=== PATIENT | male | born 1960 | race Two or more races ===

== ENCOUNTER → 2024-06-24 | Day surgery (SDC) | payer MEDICAID ==
[2024-06-23 11:06] LABS: Urine Bacteria None Seen /hpf (None Seen)
[2024-06-23 11:22] LABS: Basophils # (auto) 0.1 10 ^3/uL (0-0.2); Eosinophils # (auto) 0.2 10 ^3/uL (0-0.8); Eosinophils % (auto) 3.2 % (0.0-7.0); Hematocrit 41.1 % (41.0-53.0); Hemoglobin 13.5 g/dL (13.5-17.5); Lymphocytes # (auto) 0.8 10 ^3/uL (0.4-5.4); Lymphocytes % (auto) 13.8 % (10.0-50.0); Mean Corpuscular Hgb Conc. 32.7 g/dL (32.0-36.0); Mean Corpuscular Volume 85.6 fL (80.0-100.0); Monocytes # (auto) 0.4 10 ^3/uL (0-1.3); Monocytes % (auto) 7.8 % (0.0-12.0); Neutrophils # (auto) 4.1 10 ^3/uL (1.6-8.6); Neutrophils % (auto) 74.2 % (37.0-80.0); Platelet Count (auto) 247 10^3/uL (140-450); Red Cell Distribution Width 17.6 % (11.8-14.3); White Blood Cell 5.5 10^3/uL (4.4-10.8)
[2024-06-23 11:51] LABS: INR 0.96 (0.9-1.15); Partial Thromboplastin Time 28.7 SEC (24.5-34.5); Prothrombin Time 10.2 sec (9.3-11.8)
[2024-06-23 12:22] LABS: Urine Blood Negative /uL (Negative); Urine Clarity Clear (Clear); Urine Color Colorless (Yellow); Urine Protein, UAD Negative (Negative); Urine Specific Gravity 1.005 (1.001-1.035); Urine Squamous Epithelial Cell None Seen /hpf (<5); Urine Urobilinogen Normal (Negative); Urine WBC < 1 /HPF (0-3); Urine pH 5.5 (5.0-9.0)
[2024-06-23 12:27] LABS: Albumin 4.3 g/dL (3.2-4.8); Alkaline Phosphatase 72 U/L (46-116); Anion Gap 6 (5-15); Aspartate Aminotransferase 15 U/L (13-40); BUN/Creatinine Ratio 9.2 (10.0-20.0); Calcium 10.1 mg/dL (8.7-10.4); Carbon Dioxide 28 mmol/L (20-31); Chloride 103 mmol/L (98-107); Glucose 86 mg/dL (74-106); Potassium 4.1 mmol/L (3.5-5.1); Sodium 137 mmol/L (136-145)
[2024-06-23 12:28] LABS: Bilirubin, Total 0.3 mg/dL (0.2-1.0); Total Protein 6.8 g/dL (5.7-8.2)
[2024-06-23 12:29] LABS: Alanine Aminotransferase < 9 U/L (7-40); Blood Urea Nitrogen 8 mg/dL (9-23)
[~2024-06-24] VITALS: Ht 188 cm; Wt 92.1 kg
[~2024-06-24] MED LIST: ACET-1304 PO; AMLO1TAB23 PO; ASCO500T11 PO; ASPI1TAB20 PO; ATOR10TA PO; BACL20TA PO; CARV12.544 PO; CETI-83 OR; CHOLCAP4 PO; CLON0.1T PO; CLOT1CRE56 TOP; DIP005TP TOP; DIPH-751 PO; FENO145T27 OR; FER325T PO; HYDR-3682 PO; HYDROmorphone HCL 2 MG/ML VL/or syr ONE; IBUP1TAB4 PO; LEVO175C2 PO; LIDOCAINE 1% INJ PF 5ML AMP ONE; LOSA100T25 PO; METH-867 PO; MONT-8 OR; NALO4SPR2; ONDA-155 PO; ONDANSETRON HCL 4 MG/2 ML VIAL ONE; PANT40TA2 PO; PROPOFOL 10 MG/ML 20 ML IV ONE; SUCR1TAB31 OR; TACR0.1O7 EX; TERB250T92 PO; TRIO1TP EX
--- NOTE | 2024-06-24 08:58 | DVHHP2 ---
GI H&P Pre-Op Assessment Date: 06/24/24 Chief complaint: thickened esophagus on CT scan. HPI: per clinic note Past medical history: per clinic note Past surgical history: per clinic note Family history: per clinic note Physical exam: General: NAD, AAOX3 HEENT: PERRL, no scleral icterus, normal hearing, gums without lesions or bleeding, oropharynx clear without erythema or exudate. Neck: Supple without enlargement of the thyroid, or lymphadenopathy. Chest: Normal size and shape, no tenderness, lung means clear to auscultation and percussion, nonlabored breathing. Heart: RRR, no murmur Abdomen: non-distended, no tenderness to palpation, +BS, no hepatosplenomegaly Extremities: no edema Neurological: CN II-XII intact, sensation intact in all extremities, 5+ strength in all extremities Skin: No rashes, No jaundice Assessment: - thickened esophagus on CT scan. Plan: - EGD - Risks (bleeding, infection, perforation, reaction to sedation medications and cardiopulmonary arrest) and benefit of the procedure were explained to patient. Patient agrees to undergo the procedure. RAFAEL SEN MD Jun 24, 2024 08:58
--- NOTE | 2024-06-24 09:00 | DVHOP2 ---
Operative Report DATE OF OPERATION: 06/24/24 PROCEDURE: Upper Endoscopy. PREOPERATIVE INDICATION: The patient is a 63 -year-old male undergoing endoscopy for thickened esophagus on CT scan. POSTOPERATIVE DIAGNOSES: 1. Hiatal hernia 42-45 cm. 2. Normal esophagus PROCEDURE PERFORMED BY: Ron Corado SCOPE: Olympus videoendoscope. ASA CLASS: 4 PREOPERATIVE MEDICATIONS: MAC with Dr Angela PROCEDURE IN DETAIL: After obtaining an informed consent, the patient was placed on left lateral decubitus position. The patient was then sedated with the above medications. A bite block was placed between his teeth. The endoscope was then passed through the oropharynx, into the esophagus, and t hrough the stomach and pylorus up to the second and third part of the duodenum. The duodenum was normal in appearance. The stomach was normal in appearance. There was hiatal hernia 42-45 cm. The GEJ was normal in appearance at 42 cm. The esophagus was normal in appearance. The endoscope was then withdrawn. The patient tolerated the procedure well without difficulty. COMPLICATIONS : None SPECIMENS: None DISPOSITION: D/C to home PLAN: 1. Pt will f/u in GI clinic. RON CORADO MD Jun 24, 2024 09:00
[2024-06-24 09:01] VITALS: PULSE 59; RESP 11; TEMP 97; O2SAT 100
--- NOTE | 2024-06-24 09:01 | DVHDS2 ---
Physician Discharge Progress N Final Diagnosis: hiatal hernia Operations or Procedures: Operations or Procedures EGD Condition on Discharge: Good Disposition: Home Discharge Instructions: Diet: Regular Activity: No Restrictions, As Tolerated Medications: resume previous home medications Follow Up Care: Discharge Statement: "Patient was advised to return to the ER or call 911 if any headaches, d izziness, shortness of breath, chest pain, abdominal pain, bleeding, fevers, or worsening of medical condition. Patient was counseled about treatment plan, medications, possible side effects, patientverbalized understanding. All questions were answered to the best of my ability. This discharge took greater then 30 minutes in planning, reviewing documentation, counseling the patient, and discussing with other team members." RAFAEL SEN MD Jun 24, 2024 09:01
[2024-06-24 09:35] VITALS: BP 90/55; PULSE 57; RESP 15; O2SAT 99
== END | disposition home or self-care (01) ==
LOC: GI 07:08
PROVIDERS: ATTEND Internal Medicine Gastroenterology
DX: R93.3 Abnormal findings on diagnostic imaging of other parts of digestive tract (principal); K44.9 Diaphragmatic hernia without obstruction or gangrene; I10 Essential (primary) hypertension; I25.2 Old myocardial infarction; E03.9 Hypothyroidism, unspecified; G89.29 Other chronic pain; Z79.890 Hormone replacement therapy; Z79.899 Other long term (current) drug therapy
CPT/HCPCS: 36415; 43235; 80053; 81001; 85025; 85610; 85730; J1171; J2405; J2704; J7030